=== PATIENT | female | born 1955 | race Caucasian/White ===

== ENCOUNTER 2017-03-06 07:34 | Emergency (ER) | payer OTHER ==
[~2017-03-06] VITALS: Ht 170.2 cm; Wt 88.5 kg
[~2017-03-06 07:34] MED LIST: LANS30CA PO; OMEP20CA16 PO; OSLT75C PO; PROM5SYR2 PO; RANI300C7 PO
[2017-03-06 07:40] VITALS: Ht 170.2 cm; Wt 88.5 kg
[2017-03-06] MEDS ORDERED: SOD CHLORIDE 0.9% 1,000 ML IV STA (08:02)
[2017-03-06] MEDS ORDERED: ONDANSETRON 4 MG INJ IV STA (08:02)
--- NOTE | 2017-03-06 08:19 | ERD ---
ER Documentation Chief Complaint Date/Time DATE: 03/06/17 TIME: 08:16 Chief Complaint n&v x 1week, hx of ulcers HPI Patient is a 61-year-old female with a past medical history of gastric ulcers who presents emergency department for concerns of nausea and vomiting for the last week. Patient reports 2 episodes of vomiting this morning. Patient states the number of vomiting episodes different each day. Patient denies any blood or bile in her vomit. Patient states she has had intermittent nausea and vomiting for the last year. Patient reports taking Compazine 5 mg with no relief of symptoms. Denies any abdominal pain. Patient denies any chest pain, shortness of breath, left upper extremity pain, diaphoresis, rectal bleeding or diarrhea. Patient denies any fevers or chills. Patient states she last saw GI specialist one year ago. At that time she had an endoscopy. Patient is unsure if she had an EGD, she does admit to history of gastric ulcers. ROS All systems reviewed and are negative except as per history of present illness. Medications Home Meds Active Scripts Ondansetron (Ondansetron Odt) 4 Mg Tab.rapdis, 4 MG PO Q6H Y for NAUSEA AND/OR VOMITING, #12 TAB Prov:VANESSA MCDANIEL PA-C 03/06/17 Oseltamivir Phosphate* (Tamiflu*) 75 Mg Capsule, 75 MG PO BID for 5 Days, CAP Prov:FRANTZ ROGEL DO 05/17/16 Promethazine HCl/Codeine (Prometh-Codein 6.25-10 mg/5 ml) 5 Ml Syrup, 5 ML PO Q6 , #120 ML Prov:FRANTZ ROGEL DO 05/17/16 Reported Medications Ranitidine Hcl (Ranitidine Hcl) 300 Mg Capsule, 300 MG PO HS, #30 CAP 07/25/15 Lansoprazole* (Lansoprazole*) 30 Mg Capsule.dr, 30 MG PO DAILY, CAP 07/25/15 Omeprazole* (Omeprazole*) 20 Mg Capsule.dr, 20 MG PO DAILY, CAP 12/20/14 Allergies Allergies: Coded Allergies: No Known Allergy (Unverified , 03/06/17) PMhx/Soc History of Surgery: Yes (ANGELITO, L OCULAR FX SCREW AND PLATE) Anesthesia Reaction: No Hx Neurological Disorder: No Hx Respiratory Disorders: No Hx Cardiac Disorders: No Hx Psychiatric Problems: Yes (ANXIETY, SOME XANAX) Hx Miscellaneous Medical Probl: No Hx Alcohol Use: No Hx Substance Use: No Hx Tobacco Use: Yes (10 CIGS/DAY) Smoking Status: Current every day smoker FmHx Family History: No diabetes Physical Exam Vitals Vital Signs Date Time Temp Pulse Resp B/P Pulse Ox O2 Delivery O2 Flow Rate FiO2 03/06/17 07:40 99.7 84 20 152/78 96 Physical Exam GENERAL: Well-developed, well-nourished female. Appears in no acute distress. Speaking in full sentences. HEAD: Normocephalic, atraumatic. EYES: Pupils are equally reactive bilaterally. EOMs grossly intact. No conjunctival erythema. ENT: Moist mucous membranes. No uvula deviation. No kissing tonsils. NECK: Supple. No meningismus. Normal range of motion of the neck. LUNG: Clear to auscultation bilaterally. No rhonchi, wheezing, rales or coarse breath sounds. HEART: Regular rate and rhythm. No murmurs, rubs or gallops. ABDOMEN: No scars, ecchymosis or rashes noted. Soft, nontender, and nondistended. Positive bowel sounds in all four quadrants. No rebound tenderness , no guarding. (-) McBurney's point tenderness. No CVA tenderness. BACK: No midline tenderness. EXTREMITIES: Equal pulses bilaterally. No peripheral clubbing, cyanosis or edema. No unilateral leg swelling. NEUROLOGIC: Alert and oriented. Moving all four extremities without any difficulty. Normal speech. Steady gait. SKIN: Normal color. Warm and dry. No rashes or lesions. Result Diagram: 03/06/17 0815 03/06/17 0815 Results 24 hrs Laboratory Tests Test 03/06/17 08:10 03/06/17 08:15 Urine Color STRAW Urine Clarity CLEAR Urine pH 5.0 Urine Specific [place] 1.012 Urine Ketones NEGATIVEmg/dL Urine Nitrite NEGATIVEmg/dL Urine Bilirubin NEGATIVEmg/dL Urine Urobilinogen NEGATIVEmg/dL Urine Leukocyte Esterase TRACELeu/ul Urine Microscopic RBC 3/HPF Urine Microscopic WBC 2/HPF Urine Hemoglobin 1+mg/dL Urine Glucose NEGATIVEmg/dL Urine Total Protein NEGATIVEmg/dl White Blood Count 7.910^3/ul Red Blood Count 4.8410^6/ul Hemoglobin 14.9g/dl Hematocrit 44.0% Mean Corpuscular Volume 90.9fl Mean Corpuscular Hemoglobin 30.8pg Mean Corpuscular Hemoglobin Concent 33.9g/dl Red Cell Distribution Width 13.2% Platelet Count 66890^3/UL Mean Platelet Volume 12.9fl Neutrophils % 54.3% Lymphocytes % 33.4% Monocytes % 7.6% Eosinophils % 3.2% Basophils % 1.0% Nucleated Red Blood Cells % 0.0/100WBC Neutrophils # 4.310^3/ul Lymphocytes # 2.610^3/ul Monocytes # 0.610^3/ul Eosinophils # 0.310^3/ul Basophils # 0.110^3/ul Nucleated Red Blood Cells # 0.010^3/ul Sodium Level 141mmol/L Potassium Level 4.6mmol/L Chloride Level 106mmol/L Carbon Dioxide Level 25mmol/L Anion Gap 15 Blood Urea Nitrogen 10mg/dl Creatinine 0.66mg/dl Glucose Level 103mg/dl Calcium Level 9.5mg/dl Total Bilirubin 0.4mg/dl Direct Bilirubin 0.00mg/dl Indirect Bilirubin 0.4mg/dl Aspartate Amino Transf (AST/SGOT) 28IU/L Alanine Aminotransferase (ALT/SGPT) 36IU/L Alkaline Phosphatase 114IU/L Troponin I < 0.012ng/ml Total Protein 7.5g/dl Albumin 4.3g/dl Globulin 3.20g/dl Albumin/Globulin Ratio 1.34 Lipase 89U/L Current Medications Medications (Trade) Dose Ordered Sig/Don Route PRN Reason Start Time Stop Time Status Last Admin Dose Admin Sodium Chloride (NS) 1,000 ml @ 1,000 mls/hr Q1H STAT IV 03/06/17 08:02 03/06/17 09:01 DC 03/06/17 08:12 Ondansetron HCl (Zofran Inj) 4 mg ONCE STAT IV 03/06/17 08:02 03/06/17 08:03 DC 03/06/17 08:11 IV Flush 10 ml 10 ml STK-MED ONCE .ROUTE 03/06/17 09:57 03/06/17 09:58 DC 03/06/17 10:02 Sodium Chloride (NS) 100 ml @ ud STK-MED ONCE .ROUTE 03/06/17 09:57 03/06/17 09:58 DC 03/06/17 10:02 Iohexol (Omnipaque 300mg/ ml) 150 ml STK-MED ONCE .ROUTE 03/06/17 09:57 03/06/17 09:58 DC 03/06/17 10:03 Procedures/MDM ED COURSE: The patient was stable throughout ED course. I kept the patient and/or family informed of laboratory and diagnostic imaging results throughout the ED course. DIAGNOSTIC IMAGING: Read by radiologist. Patient: KISHA CALLAWAY : 1955 Age: 61 Sex: F MR #: [id number] DOS: 03/06/17 08 Ordering MD: VANESSA MCDANIEL PA-C Location: [facility] Room/Bed: PROCEDURE: CT ABDOMEN AND PELVIS WITH IV CONTRAST. CLINICAL INDICATION: Abdominal pain TECHNIQUE: CT scan of the abdomen and pelvis without contrast was performed on a multidetector high-resolution CT scanner following the use of IV contrast. Coronal and sagittal reformatted images were obtained from the axial source images. Images were reviewed on a high-resolution PACS workstation. The total exam CTDI equals 21.4 mGy and the total exam DLP equals 1274.5 mGy-cm. One or more of the following dose reduction techniques were used: Automated exposure control. Adjustment of the mA and/or kV according to patient size. Use of iterative reconstruction technique. COMPARISON: None FINDINGS: CT abdomen: The lung bases are clear. The heart size is within limits. There is no significant pericardial effusion. Hepatic morphology is within normal limits. No gross contour deforming masses. The gallbladder is within limits. No evidence of intrahepatic or extrahepatic biliary dilatation. The spleen and pancreas are within normal limits. Both adrenal glands are within normal limits. Both kidneys are in normal anatomic position. No evidence of obstruction or hydronephrosis. No gross renal/ureteric calculi. The visualized GI tract demonstrates thickening of the dupree of the stomach. There appears to be edematous appearance of the distal stomach/pylorus. Normal caliber loops of small large bowel. No evidence of bowel obstruction. The appendix is within normal limits. There is a small fat-containing umbilical hernia. The aorta demonstrates mild atherosclerotic calcifications. Several shoddy retroperitoneal lymph nodes are noted. CT pelvis: The bladder is within limits. The uterus is not visualized. The rectosigmoid colon demonstrates mild diverticulosis. No significant free fluid. No significant pelvic lymphadenopathy. There is a 3.2 cm density with central hypodensity in the right adnexal region, probably ovarian cyst remnant. The visualized osseous structures, demonstrates mild degenerative changes. Broad -based posterior disc bulge is noted at the level L5-S1, along with facet arthropathy. IMPRESSION: 1. No evidence of bowel obstruction. The appendix is within normal limits. 2. Thickening of the dupree of the stomach, which may be due to incomplete distension. Also appears to be edematous appearance of the dupree of the distal stomach/pylorus. Underlying gastritis is not excluded. Recommend follow-up upper GI endoscopy. 3. Fat-containing umbilical hernia. No evidence of contained bowel loops. 4. 3.2 cm density within the right adnexal region with central lucency, probably ovarian cyst remnant. Status post hysterectomy. 5. No free fluid or free air. No gross focal fluid collections. RPTAT: AAPP Physician Roberth Date Time Electronically viewed and signed by Physician Roberth on 03/06/2017 10:14 JL/ CC: VANESSA MCDANIEL PA-C PROCEDURES: None. MEDICATIONS GIVEN: IV fluids, Zofran Patient tolerated medication well with no adverse reactions. MEDICAL DECISION MAKING: Patient is 61-year-old female who presents to the ED for concerns of nausea and vomiting for the last week. Patient states has had intermittent nausea and vomiting for the last year. Vital signs were reviewed. Patient is afebrile. Patient was not hypoxic. Abdominal exam was benign. Had no peritoneal signs. CBC showed no evidence of systemic infection or severe anemia. CMP showed no evidence of electrolyte abnormalities, severe acidosis, alkalosis , renal failure, or liver disease. Lipase showed no evidence of acute pancreatitis. Trop was negative. UA showed no evidence of acute infection or hematuria. Low suspicion for UTI, pyelonephritis or nephrolithiasis. CT abdomen and pelvis showed 1. No evidence of bowel obstruction. The appendix is within normal limits. 2. Thickening of the dupree of the stomach, which may be due to incomplete distension. Also appears to be edematous appearance of the dupree of the distal stomach/pylorus. Underlying gastritis is not excluded. Recommend follow-up upper GI endoscopy. 3. Fat-containing umbilical hernia. No evidence of contained bowel loops. 4. 3.2 cm density within the right adnexal region with central lucency, probably ovarian cyst remnant. Status post hysterectomy. 5. No free fluid or free air. No gross focal fluid collections. I discussed the patient's case with my supervising physician Dr. Paniagua who agreed that the patient is stable for outpatient management. At this time, patient's presentation is most consistent with opening of unknown etiology. Patient was advised to follow-up with the GI specialist for concerns of gastric ulcer vs H pylori. Low suspicion for acute coronary syndrome, lower lobe pneumonia, DKA, bowel obstruction, bowel perforation, cholecystitis, choledocholithiasis, ascending cholangitis, hepatic abscess, pancreatitis, splenic rupture, diverticulitis, UTI, pyelonephritis, nephrolithiasis, appendicitis, ovarian torsion or tubo-ovarian abscess. PRESCRIPTIONS: Zofran DISCHARGE: At this time, patient is stable for discharge and outpatient management. Patient was given a copy of all imaging studies and blood work obtained today. Patient advised to follow-up with the GI specialist on an outpatient basis. Referral information provided. I have instructed the patient to follow-up with his/her primary care physician in 1-2 days. I have instructed the patient to promptly return to the ER at any time for any new or worsening symptoms including increased pain, nausea, vomiting, diarrhea, fever, weakness or LOC. The patient and/or family expressed understanding of and agreement with this plan. All questions were answered. Home care instructions were provided. Disclaimer: Inadvertent spelling and grammatical errors are likely due to EHR/ dictation software use and do not reflect on the overall quality of patient care. Also, please note that the electronic time recorded on this note does not necessarily reflect the actual time of the patient encounter. Patients blood pressure was elevated (>120/80) but appears stable without evidence of hypertensive emergency, hypertensive urgency or end-organ failure. I had discussion with the patient about the risks of hypertension. I have advised the patient to follow up with his/her primary care physician for outpatient monitoring and treatment for hypertension in 2-3 days. I have instructed the patient to return to the ER for any new or worsening symptoms including chest pain, shortness of breath, headache, blurred vision, confusion, nausea, vomiting or LOC. Departure Diagnosis: Primary Impression: Nausea and vomiting Vomiting type: unspecified Vomiting Intractability: unspecified Qualified Code: R11.2 - Nausea and vomiting, intractability of vomiting not specified, unspecified vomiting type Condition: Stable Patient Instructions: Nausea and Vomiting-Adult Referrals: LAURITA ZHANG MD (PCP) DARIAN MAGANA MD, NAGARAJ M MD DESIGAN,GERA MILLS,GARY COLE,HALIMA SHERIFF,MAXIMINO Brennan MD Additional Instructions: Call your primary care doctor TOMORROW for an appointment during the next 1-2 days.See the doctor sooner or return here if your condition worsens before your appointment time. Patient should follow-up with a GI specialist for an endoscopy on an outpatient basis. VANESSA MCDANIEL PA-C Mar 06, 2017 08:19
[2017-03-06 09:00] LABS: BASOPHIL # 0.1 10^3/ul (0.0-0.1); EOSINOPHILS # 0.3 10^3/ul (0.0-0.5); EOSINOPHILS % 3.2 % (0.0-7.0); HEMOGLOBIN 14.9 g/dl (12.0-16.0); LYMPHOCYTES # 2.6 10^3/ul (0.8-2.9); LYMPHOCYTES % 33.4 % (15.0-51.0); MEAN CORPUSCULAR HEMOGLOBIN 30.8 pg (29.0-33.0); MEAN CORPUSCULAR HGB CONC 33.9 g/dl (32.0-37.0); MEAN CORPUSCULAR VOLUME 90.9 fl (82.0-101.0); MONOCYTE # 0.6 10^3/ul (0.3-0.9); MONOCYTES % 7.6 % (0.0-11.0); NEUTROPHIL # 4.3 10^3/ul (1.6-7.5); NEUTROPHILS % 54.3 % (39.0-77.0); RED BLOOD COUNT 4.84 10^6/ul (4.20-5.40); RED CELL DISTRIBUTION WIDTH 13.2 % (11.5-14.5); WHITE BLOOD COUNT 7.9 10^3/ul (4.8-10.8)
[2017-03-06 09:11] LABS: ADD UMIC YES; UR ASCORBIC ACID NEGATIVE (NEGATIVE); UR BILIRUBIN (Dip) NEGATIVE (NEGATIVE); UR BLOOD (Dip) 1+ mg/dL (NEGATIVE); UR CLARITY CLEAR (CLEAR); UR COLOR STRAW (YELLOW); UR GLUCOSE (Dip) NEGATIVE (NEGATIVE); UR KETONES (Dip) NEGATIVE (NEGATIVE); UR LEUKOCYTE ESTERASE (Dip) TRACE Leu/ul (NEGATIVE); UR NITRITE (Dip) NEGATIVE (NEGATIVE); UR RBC 3 /HPF (0-5); UR SPECIFIC GRAVITY (Dip) 1.012 (1.003-1.030); UR TOTAL PROTEIN (Dip) NEGATIVE (NEGATIVE); UR UROBILINOGEN (Dip) NEGATIVE (NEGATIVE)
[2017-03-06 09:18] LABS: ALANINE AMINOTRANSFERASE 36 IU/L (13-69); ALBUMIN 4.3 g/dl (3.3-4.9); ALBUMIN/GLOBULIN RATIO 1.34; ALKALINE PHOSPHATASE 114 IU/L (42-121); ANION GAP 15 (8-16); ASPARTATE AMINO TRANSFERASE 28 IU/L (15-46); BILIRUBIN,INDIRECT 0.4 mg/dl (0-1.1); BILIRUBIN,TOTAL 0.4 mg/dl (0.2-1.3); BLOOD UREA NITROGEN 10 mg/dl (7-20); CALCIUM 9.5 mg/dl (8.4-10.2); CARBON DIOXIDE 25 mmol/L (21-31); CHLORIDE 106 mmol/L (97-110); CREATININE 0.66 mg/dl (0.44-1.00); GLUCOSE 103 mg/dl (70-220); POTASSIUM 4.6 mmol/L (3.5-5.1); SODIUM 141 mmol/L (135-144); TOTAL PROTEIN 7.5 g/dl (6.1-8.1)
[2017-03-06 09:32] LABS: TROPONIN-I < 0.012 ng/ml (0.00-0.12)
[2017-03-06 09:48] LABS: MEAN PLATELET VOLUME 12.9 fl (7.4-10.4); POSITIVE DIFF @See below
[2017-03-06 09:56] LABS: PLATELET COUNT 178 10^3/UL (140-415)
[2017-03-06] MEDS ORDERED: IOHEXOL 300MG/ML 150 ML BTL ONE (09:57)
[2017-03-06] MEDS ORDERED: SOD CHLORIDE 0.9% 100 ML ONE (09:57)
--- NOTE | 2017-03-06 10:14 | RADRPT ---
PROCEDURE: CT ABDOMEN AND PELVIS WITH IV CONTRAST. CLINICAL INDICATION: Abdominal pain TECHNIQUE: CT scan of the abdomen and pelvis without contrast was performed on a multidetector hig h-resolution CT scanner following the use of IV contrast. Coronal and sagittal reformatted images we re obtained from the axial source images. Images were reviewed on a high-resolution PACS workstation . The total exam CTDI equals 21.4 mGy and the total exam DLP equals 1274.5 mGy-cm. One or more of the following dose reduction techniques were used: Automated exposure control. Adjustment of the mA and/or kV according to patient size. Use of iterative reconstruction technique. COMPARISON: None FINDINGS: CT abdomen: The lung bases are clear. The heart size is within limits. There is no significant pericardial effus ion. Hepatic morphology is within normal limits. No gross contour deforming masses. The gallbladder is wi thin limits. No evidence of intrahepatic or extrahepatic biliary dilatation. The spleen and pancreas are within normal limits. Both adrenal glands are within normal limits. Both kidneys are in normal anatomic position. No evidence of obstruction or hydronephrosis. No gross renal/ureteric calculi. The visualized GI tract demonstrates thickening of the dupree of the stomach. There appears to be jorge matous appearance of the distal stomach/pylorus. Normal caliber loops of small large bowel. No evide nce of bowel obstruction. The appendix is within normal limits. There is a small fat-containing umbi lical hernia. The aorta demonstrates mild atherosclerotic calcifications. Several shoddy retroperitoneal lymph nod es are noted. CT pelvis: The bladder is within limits. The uterus is not visualized. The rectosigmoid colon demonstrates mild diverticulosis. No significant free fluid. No significant pelvic lymphadenopathy. There is a 3.2 cm density with central hypodensity in the right adnexal region, probably ovarian cyst remnant. The visualized osseous structures, demonstrates mild degenerative changes. Broad-based posterior dis c bulge is noted at the level L5-S1, along with facet arthropathy. IMPRESSION: 1. No evidence of bowel obstruction. The appendix is within normal limits. 2. Thickening of the dupree of the stomach, which may be due to incomplete distension. Also appears t o be edematous appearance of the dupree of the distal stomach/pylorus. Underlying gastritis is not ex cluded. Recommend follow-up upper GI endoscopy. 3. Fat-containing umbilical hernia. No evidence of contained bowel loops. 4. 3.2 cm density within the right adnexal region with central lucency, probably ovarian cyst remnan t. Status post hysterectomy. 5. No free fluid or free air. No gross focal fluid collections. RPTAT: AAPP Physician Roberth Date Time Electronically viewed and signed by João Joaquin Physician on 03/06/2017 10:14 JL/
[2017-03-06] MEDS ORDERED: ONDA4TAB14 PO (10:42)
[2017-03-06 11:00] VITALS: BP 145/72; PULSE 66; RESP 18; TEMP 99.7
== END 2017-03-06 11:00 | disposition home or self-care (01) ==
LOC: FTE 07:34
DX: R11.2 Nausea with vomiting, unspecified (principal); F17.210 Nicotine dependence, cigarettes, uncomplicated
CPT/HCPCS: 36415; 74177; 80053; 81001; 83690; 84484; 85025; 96374; J2405; J7030; Q9967; Z7502; Z7610

== ENCOUNTER 2017-09-15 08:50 | Emergency (ER) | END 2017-09-15 12:10 | disposition home or self-care (01) ==

== ENCOUNTER 2017-10-17 17:48 | Emergency (ER) | END 2017-10-17 23:00 | disposition left against medical advice (07) ==

== ENCOUNTER 2017-11-07 05:26 | Emergency (ER) | END 2017-11-07 08:01 | disposition home or self-care (01) ==

== ENCOUNTER 2017-12-12 07:09 | Emergency (ER) | END 2017-12-12 11:06 | disposition home or self-care (01) ==

== ENCOUNTER 2019-01-13 18:15 | Emergency (ER) | payer OTHER ==
[~2019-01-13] VITALS: Ht 167.6 cm; Wt 95.3 kg
[~2019-01-13 18:15] MED LIST changes: +ACYC800T5 PO; +ALPR1TAB2 PO; +CITA20TA11 PO; +ERYT1OIN6 BOTH EYES; +HYDR-3980 PO; +IBUP-1542 PO; -LANS30CA PO; -OMEP20CA16 PO; +ONDA4TAB14 PO; -OSLT75C PO; -PROM5SYR2 PO; -RANI300C7 PO; +ZOLP5TAB PO
[2019-01-13 18:24] VITALS: BP 136/72; PULSE 98; RESP 16; Ht 167.6 cm; Wt 95.3 kg
[2019-01-13] MEDS ORDERED: TETRACAINE 0.5% 4 ML OPH RIGHT EYE ONE (20:30)
[2019-01-13] MEDS ORDERED: TETRACAINE 0.5% 4 ML OPH LEFT EYE ONE (20:30)
[2019-01-13] MEDS ORDERED: FLUORESCEIN STRIP BOTH EYES ONE (20:30)
[2019-01-13] MEDS ORDERED: ERYTHROMYCIN 1 GM OPH OINT BOTH EYES ONE (21:00)
== END 2019-01-13 21:09 | disposition home or self-care (01) ==
LOC: FTE 18:15
DX: H10.9 Unspecified conjunctivitis (principal)
CPT/HCPCS: 82962; Z7502; Z7610; 99283

== ENCOUNTER 2019-03-11 05:33 | Emergency (ER) | payer OTHER ==
[~2019-03-11] VITALS: Ht 167.6 cm; Wt 98.2 kg
[~2019-03-11 05:33] MED LIST changes: +DICL100G37 TOP; +NAPR-985 PO; +TRAM50TA2 PO
[2019-03-11 06:04] VITALS: Ht 167.6 cm; Wt 98.2 kg
[2019-03-11] MEDS ORDERED: KETOROLAC 60 MG INJ IM STA (06:34)
== END 2019-03-11 07:51 | disposition home or self-care (01) ==
LOC: FTE 05:33
DX: M25.562 Pain in left knee (principal); F17.210 Nicotine dependence, cigarettes, uncomplicated
CPT/HCPCS: 73562; 96372; J1885; Z7502